=== PATIENT | male | born 1990 | race Caucasian/White ===

== ENCOUNTER 2022-06-21 09:36 | Outpatient (CLI) | payer BC, SELFPAY ==
--- NOTE | 2022-06-21 11:00 | NEURO_ITS ---
Impression: Patient reports a history of bilateral hand pain. # Early changes suggestive of evolving, mild left Carpal Tunnel Syndrome. # Normal needle/EMG exam. # Clinical correlation recommended. Nerve Conduction Studies Anti Sensory Summary Table Stim Site NR Peak (ms) P-T Amp (?V) Site1 Site2 Delta-P (ms) Dist (cm) Bobby (m/s) Left Median Anti Sensory (2-3nd Digit) Wrist 3.8 22.0 Wrist 2-3nd Digit 3.8 14.0 37 Wrist 3.8 58.0 Wrist 2-3nd Digit 3.8 14.0 37 Right Median Anti Sensory (2-3nd Digit) Wrist 3.5 25.1 Wrist 2-3nd Digit 3.5 14.0 40 Wrist 3.4 44.6 Wrist 2-3nd Digit 3.5 14.0 40 Left Radial Anti Sensory (Base 1st Digit) Wrist 1.9 42.4 Wrist Base 1st Digit 1.9 0.0 Right Radial Anti Sensory (Base 1st Digit) Wrist 1.7 45.7 Wrist Base 1st Digit 1.7 0.0 Left Ulnar Anti Sensory (5th Digit) Wrist 2.8 47.2 Wrist 5th Digit 2.8 14.0 50 Right Ulnar Anti Sensory (5th Digit) Wrist 2.3 66.6 Wrist 5th Digit 2.3 14.0 61 Motor Summary Table Stim Site NR Onset (ms) O-P Amp (mV) Site1 Site2 Delta-0 (ms) Dist (cm) Bobby (m/s) Left Median Motor (Abd Poll Brev) Wrist 3.7 6.9 Elbow Wrist 4.3 24.0 56 Elbow 8.0 4.0 Right Median Motor (Abd Poll Brev) Wrist 3.2 8.3 Elbow Wrist 4.2 24.0 57 Elbow 7.4 5.6 Left Ulnar Motor (Abd Dig Minimi) Wrist 2.2 6.0 A Elbow Wrist 5.4 31.0 57 A Elbow 7.6 5.5 B Elbow Wrist 3.7 21.0 57 B Elbow 5.9 5.5 Right Ulnar Motor (Abd Dig Minimi) Wrist 2.5 6.8 A Elbow Wrist 5.2 30.0 58 A Elbow 7.7 5.9 B Elbow Wrist 3.4 20.0 59 B Elbow 5.9 5.7 F Wave Studies NR F-Lat (ms) L-R F-Lat (ms) Left Median (Mrkrs) (Abd Poll Brev) 28.53 0.01 Right Median (Mrkrs) (Abd Poll Brev) 28.54 0.01 Left Ulnar (Mrkrs) (Abd Dig Min) 28.05 0.67 Right Ulnar (Mrkrs) (Abd Dig Min) 28.72 0.67 EMG Side Muscle Nerve Root Ins Act Fibs Amp Dur Recrt Comment Right 1stDorInt Ulnar C8-T1 Nml Nml Nml Nml Nml Right Ext Indicis Radial (Post Int) C7-8 Nml Nml Nml Nml Nml Right Ext Digitorum Radial (Post Int) C7-8 Nml Nml Nml Nml Nml Right BrachioRad Radial C5-6 Nml Nml Nml Nml Nml Right PronatorTeres Median C6-7 Nml Nml Nml Nml Nml Right Abd Poll Brev Median C8-T1 Nml Nml Nml Nml Nml Left 1stDorInt Ulnar C8-T1 Nml Nml Nml Nml Nml Left Ext Indicis Radial (Post Int) C7-8 Nml Nml Nml Nml Nml Left Ext Digitorum Radial (Post Int) C7-8 Nml Nml Nml Nml Nml Left BrachioRad Radial C5-6 Nml Nml Nml Nml Nml Left PronatorTeres Median C6-7 Nml Nml Nml Nml Nml Left Abd Poll Brev Median C8-T1 Nml Nml Nml Nml Nml MTDD
== END 2022-06-21 09:37 | disposition home or self-care (01) ==
LOC: ANHNEURO 09:37
PROVIDERS: Visit Provider Orthopaedic Surgery
DX: R20.0 Anesthesia of skin (principal); M79.642 Pain in left hand; M79.641 Pain in right hand
CPT/HCPCS: 95886; 95911

== ENCOUNTER 2024-07-19 10:18 | Emergency (ER) | payer BC, SELFPAY ==
--- NOTE | 2024-07-19 10:23 | ED.EAR ---
HPI - Ear Problem General Chief complaint: Ear Stated complaint: LT Ear Clogged Time Seen by Provider: 07/19/24 10:23 Source: patient Mode of arrival: ambulatory Limitations: no limitations History of Present Illness HPI Narrative: 34 yo M presents with c/o bilateral clogged, muffled hearing, PND, runny nose for 1 wk. Has not taken any OTC meds to treat symptoms. concerned he may need ears irrigated. All systems reviewed and negative except as noted above. Related Data Allergies Allergy/AdvReac Type Severity Reaction Status Date / Time MED RECVD DURING EGD Allergy Severe TOLD BY Uncoded 07/19/24 10:27 PROCEDURE--2012 STAFF HAD RASH REACTION-- Review of Systems Review of Systems: CONSTITUTIONAL: Denies fever, chills, or sweats. EYES: Denies visual changes, redness, or discharge. ENT: Reports rhinorrhea, congestion, muffled hearing, ear pressure, postnasal drainage. Denies sore throat CARDIOVASCULAR: Denies chest pain, palpitations, or edema. RESPIRATORY: Denies cough or dyspnea. GASTROINTESTINAL: Denies abdominal pain, nausea, vomiting, or diarrhea. GENITOURINARY: Denies dysuria or hematuria. SKIN: Denies rash or itching. MUSCULOSKELETAL: Denies back pain, joint pain, or myalgia. NEUROLOGIC: Denies headache, numbness, or weakness. PSYCHIATRIC: Denies anxiety or depression. All other systems reviewed are negative, except as documented in HPI. PMFSH Comments At time of signature, agree with nursing past medical, surgical, social and family history. There is no relevant family history pertinent to the presenting complaint. Exam Narrative: GENERAL: This is a well-nourished, well-developed patient, in no apparent distress. HEAD: normocephalic, atraumatic. EYES: PERRL. Sclera clear/white. Vision is grossly intact. EARS: External ears normal, auditory canals clear and without drainage, bilateral TMs, clear fluid, dull light reflex, retracted, injected. No perforation bilaterally. Hearing grossly intact. NOSE: External nose normal with no obvious nasal discharge, nares without redness, no rhinorrhea. THROAT: Mucous membranes moist, postnasal drainage without erythema, swelling or exudates. NECK: Neck supple, non-tender without lymphadenopathy, masses or thyromegaly. CARDIOVASCULAR: Regular rate and rhythm without murmurs, gallops, or rubs. RESPIRATORY: Clear to auscultation. Breath sounds equal bilaterally. No wheezes, rales, or rhonchi. SKIN: warm, Dry, intact with no suspicious lesions or rash, good texture and turgor. NEURO: awake, alert, and oriented to person, place and time. There were no obvious focal neurologic abnormalities. EXTREMITIES: No joint tenderness, effusion, or edema noted. No calf tenderness. Negative Homans sign bilaterally. BACK: Nontender without deformity. No CVA tenderness. Course Course Level of Care: Express Care Visit Vital Signs Vital signs: Reviewed Medical Decision Making MDM Narrative Medical decision making narrative: Patient well-appearing, nontoxic. Will treat with antibiotic, antihistamines for seasonal allergies, serous otitis media. Patient agrees with plan of care. Discharge Plan Discharge Clinical Impression: Acute serous otitis media, Seasonal allergies Patient Disposition: Home Condition: Stable Instructions: Antibiotic Form, Fluid In The Ear (Serous Otitis Media) (ED) Additional Instructions: Take medications as prescribed. Taking [id number] antihistamine daily such as Claritin or Zyrtec. Drink at least 64 oz of water a day. Follow-up with your primary care physician if symptoms are not improving. Patient Language: Arabic Prescriptions: New amoxicillin 875 mg tablet 875 mg PO Q12H 10 Days Qty: 20 0RF methylprednisolone [Medrol (Edmundo)] 4 mg tablets,dose pack See Rx Instructions PO .COMPLEX Qty: 21 0RF Rx Instructions: orally per package directions fluticasone propionate [Flonase Allergy Relief] 50 mcg/actuation spray,suspension 1 spray intranasal BID Qty: 16 0RF Rx Instructions: administer into each nostril Follow-up/Referrals: Francesca,Geovani Case M.D. [Primary Care Provider] - Time of Disposition: 10:35
[2024-07-19 10:25] VITALS: BP 137/81; PULSE 78; RESP 16; TEMP 36.4; O2SAT 100
== END 2024-07-19 10:41 | disposition home or self-care (01) ==
PROVIDERS: Emergency Provider Nurse Practitioner Family; PCP Family Medicine
DX: H65.03 Acute serous otitis media, bilateral (principal); J30.2 Other seasonal allergic rhinitis
CPT/HCPCS: 99213; G0463